=== PATIENT | female | born 1995 | race Caucasian/White ===

== ENCOUNTER 2022-01-13 17:56 | Emergency (ER) | payer SELFPAY ==
--- NOTE | 2022-01-13 19:44 | ED.GENADULT ---
HPI - General Adult General Chief complaint: Cough Stated complaint: Cough, Fever Related Data Previous Rx's ?Medication ?Instructions ?Recorded sertraline 25 mg tablet 50 mg (2 x 25 mg) PO QDAY #90 tabs 10/10/22 albuterol sulfate 90 mcg/actuation 2 puff inhalation QID PRN 11/14/22 aerosol inhaler shortness of breath or wheezing #6.7 grams Allergies Allergy/AdvReac Type Severity Reaction Status Date / Time Bee sting Allergy Severe Hives, Uncoded 11/14/22 13:41 swelling PFSH PFS Medical History Normal spontaneous vaginal delivery ?O80 - Encounter for full-term uncomplicated delivery (ICD-10) Scoliosis ?M41.9 - Scoliosis, unspecified (ICD-10) Anxiety ?F41.9 - Anxiety disorder, unspecified (ICD-10) Surgical History H/O LEEP ?Z98.890 - Other specified postprocedural states (ICD-10) History of tonsillectomy and adenoidectomy ?Z90.89 - Acquired absence of other organs (ICD-10) Family History Mother Heart disease Father H/O heart surgery Paternal Grandmother Diabetes Multiple sclerosis Aunt Breast cancer Maternal Grandmother Multiple sclerosis Son Asthma Social History Narrative: SOCIAL Education: some college 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 [employer] Partner: Dain villarreal and michell al; Son - Morales Lives with: SO and son Pets: cat and puppy Abuse: Denies past/present, past relationship physical and emotional Special Diet: Denies Ok with a blood transfusion: yes Culture or caodaism beliefs: denies RISK FACTORS Seat Belt Use: Routinely MRSA: Denies What is your current living situation?: I presently have a place to live Problems where you live: no known problems In the past 12 months, utilities in danger of being shut off: no In past 12 months, lack of transportation kept you from medical appts, meetings, work, or getting things needed for daily living: no In the past 12 mos, have been you worried that your food would run out before you had money to buy more?: never true In the past 12 mos, the food you bought just didn't last and you didn't have money to buy more?: never true Are you following a diet prescribed by a doctor: No Are you following a special diet: No Highest level of school completed/degree received: some college, no degree Physical activity type: walking Smoking Status: Current every day smoker What tobacco products do you use: cigarettes Nicotine containing products detail: working on cuttingback Second hand tobacco smoke exposure: No Non-prescribed substance use: former substance user and marijuana (any form) Non-prescribed substance use details: marijuana before +UPT Caffeine: Yes (1 cup of coffee a day) How often does anyone, including family, friends and others, physically hurt you: never How often does anyone, including family, friends and others, insult or talk down to you: never How often does anyone, including family, friends and others, threaten you with harm: never How often does anyone, including family, friends and others, scream or curse at you: never Little interest or pleasure in doing things: more than half the days Feeling down, depressed, or hopeless: not at all Discharge Plan Discharge Patient Disposition: Left Without Being Seen
--- NOTE | 2022-01-13 20:34 | ED.NURSE ---
patient left once signed refusal to see MD Form.
== END 2022-01-13 20:34 | disposition left against medical advice (07) ==
DX: Z53.29 Procedure and treatment not carried out because of patient's decision for other reasons (principal)
CPT/HCPCS: 95992; 99281

== ENCOUNTER 2022-01-30 07:28 | Outpatient (CLI) | payer SELFPAY ==
--- NOTE | 2022-01-30 07:15 | CRLHL7_ITS ---
For Patients: As a result of the Century Cures Act, medical imaging exams and procedure reports are released immediately into your electronic medical record. You may view this report before your referring provider. If you have questions, please contact your health care provider. INDICATION: First trimester scan, establish dates. COMPARISON: None. TECHNIQUE: Real-time saldana-scale imaging of the pelvis was performed. FINDINGS: Sonographic imaging demonstrates a single living intrauterine gestation. The embryo demonstrates a regular cardiac rate measuring 120 beats per minute. The embryo`s crown-rump length measurement of 0.7 cm corresponds to a gestational age of 6 weeks 4 days with a sonographic due date of 09/21/2022. There is a normal-appearing yolk sac. There are no gross abnormalities noted within the embryo at this early state of development. The gestational sac has a normal appearance. There is a 2.3 x 0.8 x 0.6 cm perigestational hemorrhage. The amount of fluid within the sac appears appropriate for gestational age. The cervix is closed. The myometrium appears normal. The ovaries are of normal size. Corpus luteal cyst right ovary. There are no suspicious fluid collections noted in the cul-de-sac. IMPRESSION: Single living intrauterine with sonographic gestational age 6 weeks 4 days and sonographic due date 09/21/2022. Right fundal subchorionic hemorrhage measuring 2.3 x 0.8 x 0.6 cm. Dictated by Jacoby Phelps MD @ 01/30/2022 8:43:25 AM (Electronically Signed)
== END 2022-01-30 07:29 | disposition home or self-care (01) ==
LOC: US 07:29
PROVIDERS: Visit Provider Advanced Practice Midwife
DX: Z34.91 Encounter for supervision of normal pregnancy, unspecified, first trimester (principal); O20.9 Hemorrhage in early pregnancy, unspecified; Z3A.01 Less than 8 weeks gestation of pregnancy
CPT/HCPCS: 76817

== ENCOUNTER 2022-01-30 09:12 | Outpatient (CLI) | payer SELFPAY ==
[2022-01-30 11:31] LABS: HIV 1/2/P24 Combo Screen* Negative (Negative)
[2022-01-30 13:32] LABS: Hepatitis B Surface Antigen* Negative (Negative)
[2022-01-30 13:49] LABS: Hepatitis C Virus Antibody* Negative (Negative)
[2022-01-30 14:53] LABS: Chlamydia DNA Amplified* NOT DETECTED (No Detected); GC DNA Amplified* NOT DETECTED (No Detected)
[2022-02-01 00:58] LABS: Rapid Plasma Reagin (RPR) Non Reactive (Non Reactive)
[2022-02-01 01:52] LABS: Rubella Antibody IgG 65.4 IU/mL
== END 2022-01-30 09:13 | disposition home or self-care (01) ==
PROVIDERS: Visit Provider Advanced Practice Midwife
DX: Z34.91 Encounter for supervision of normal pregnancy, unspecified, first trimester (principal); Z3A.13 13 weeks gestation of pregnancy
CPT/HCPCS: 86592; 86703; 86762; 86787; 86803; 86850; 86900; 86901; 87086; 87340; 87491; 87591

== ENCOUNTER 2022-04-18 13:48 | Outpatient (CLI) | payer SELFPAY | END 2022-04-18 13:49 | disposition home or self-care (01) | LOC: NFLDREF 13:50 | PROVIDERS: Visit Provider Advanced Practice Midwife | DX: Z34.81 Encounter for supervision of other normal pregnancy, first trimester (principal); Z3A.18 18 weeks gestation of pregnancy | CPT/HCPCS: 80306 ==

== ENCOUNTER 2022-05-08 08:10 | Outpatient (CLI) | payer SELFPAY ==
--- NOTE | 2022-05-08 08:15 | CRLHL7_ITS ---
For Patients: As a result of the Century Cures Act, medical imaging exams and procedure reports are released immediately into your electronic medical record. You may view this report before your referring provider. If you have questions, please contact your health care provider. INDICATION: Evaluate anatomy. COMPARISON: none TECHNIQUE: Real time saldana scale imaging of the fetus was performed as well as color Doppler analysis of the umbilical vessels. FINDINGS: Sonographic imaging demonstrates a single living intrauterine gestation. Fetus demonstrates a regular cardiac rate of 141 beats per minute. Fetus has a breech position. The placenta lies posteriorly without evidence of placenta previa. The edge of the placenta is located 7.0 cm from the internal cervical os. Amniotic fluid volume appears normal. Single deepest vertical pocket: 4.7 cm. The cervix is closed and measures 4.0 cm in length. The composite ultrasound gestational age is calculated at 20 weeks 6 days with an estimated sonographic due date of 09/19/2022. The estimated weight is 390 grams which lies at the 68th %. The following biometric measurements were obtained: Biparietal diameter: 4.7 cm/20 weeks 1 day 32nd% Head circumference: 18.1 cm/20 weeks 3 days 38th% Abdominal circumference: 16.9 cm/21 weeks 6 days 84th% Femur length: 3.2 cm/20 weeks 0 days 23rd% The HC/AC ratio measures: 1.07 range (1.06-1.25) On anatomic survey, there is a normal appearance of the cerebral ventricles, cavum septi pellucidi, cisterna magna and cerebellum. The nose, lips, and facial profile appear normal. The cervical, thoracic and lumbar spine are well visualized and appear normal. There is a normal four-chamber heart view and the left and right ventricular outflow tracts appear normal. The diaphragm and stomach appear normal. The kidneys and bladder also appear normal. There is a normal three-vessel cord and cord insertion site. The four extremities appear normal. IMPRESSION: Normal OB ultrasound exam with concordance of clinical and sonographic dating. No intrinsic abnormalities noted on anatomic survey. Dictated by Jacoby Phelps MD @ 05/08/2022 9:56:20 AM (Electronically Signed)
== END 2022-05-08 08:11 | disposition home or self-care (01) ==
PROVIDERS: Visit Provider Advanced Practice Midwife
DX: Z34.82 Encounter for supervision of other normal pregnancy, second trimester (principal); Z3A.20 20 weeks gestation of pregnancy
CPT/HCPCS: 76805

== ENCOUNTER 2022-08-28 09:23 | Outpatient (CLI) | payer OTHER, SELFPAY ==
[2022-08-29 14:08] LABS: Strep B DNA Probe NEGATIVE (Negative)
[2022-08-29 14:13] LABS: Strep B Pen/Amox Allergy No
== END 2022-08-28 09:24 | disposition home or self-care (01) ==
PROVIDERS: Visit Provider Advanced Practice Midwife
DX: Z34.93 Encounter for supervision of normal pregnancy, unspecified, third trimester (principal)
CPT/HCPCS: 87081; 87653

== ENCOUNTER 2022-09-21 21:39 | Inpatient (IN) | payer OTHER, SELFPAY ==
[2022-09-21 21:47] VITALS: BP 130/81; PULSE 106; RESP 18; TEMP 37.1
[2022-09-21 22:10] VITALS: BMI 27.7
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
[2022-09-21 23:07] VITALS: BP 121/71; PULSE 80; PULSE 85; TEMP 37.1; O2SAT 96
[2022-09-21] MEDS: miSOPROStoL 25 MCG/0.25 TABLET PO (23:12)
[2022-09-22] VITALS (84 sets, daily range): BP systolic 90–132; BP diastolic 51–80; PULSE 68–94; RESP 16–18; TEMP 36.3–37.2; O2SAT 96–100
[2022-09-22] MEDS: miSOPROStoL 25 MCG/0.25 TABLET PO (04:25)
[2022-09-22 06:48] LABS: Basophils Percent Auto 0.3 % (0.0-3.0); Eosinophils Percent Auto 0.6 % (0.0-7.0); Hemoglobin* 13.2 gm/dL (12.0-16.0); Immature Granulocytes Pct Auto 1.8 %; Lymphocytes Percent Auto 14.2 % (20-44); Mean Corpuscular HGB Conc 34 gm/dL (32-36); Mean Corpuscular Hemoglobin 31 pg (26-34); Mean Corpuscular Volume 91 fL (80-100); Monocytes Percent Auto 8.4 % (0.0-11.0); Neutrophils Percent Auto 74.7 % (42.0-72.0); Platelet Count* 322 K/uL (140-440); RDW Coefficient of Variation % 13.6 % (11.5-15.5); Red Blood Count 4.31 m/uL (4.00-5.20); White Blood Count* 11.37 K/uL (4.50-11.00)
[2022-09-22 06:49] LABS: Slide Review Reflex No
[2022-09-22] MEDS: OXYTOCIN 30 unit/500 ML in NS 30 UNIT/500 ML BAG IVPB (07:50)
[2022-09-22] MEDS: LACTATED RINGERS 1000 ML 1,000 ML 124 ML IV ×2 (07:50→15:21)
--- NOTE | 2022-09-22 08:23 | P.OBPN_ITS ---
Subjective Time Seen by Provider: 07:45 Date Seen: 09/22/22 Narrative: Gracie is a 27 yo at 40 1/7 weeks gestation that presented yesterday with PROM of clear fluid that occurred at 0830 am on 09/21. She has had two doses of cytotec and is starting to feel mild contractions. She was able to get some sleep overnight. She is supported by her partner, who is currently napping on the couch. She reports continued leaking of clear fluid. 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 at 40.1 weeks gestation? GBS negative? Uncomplicated ? PROM with clear fluid, >18 hours ?? PLAN:? 1. Reviewed options of management. She has had 2 doses of cytotec. Discussed another dose vs. Pitocin. Pt is agreeable to pitocin at this time. 2. Candidate for analgesia of choice when desired.. Planning epidural.? 3. Continuous monitoring per Pitocin protocol 4. Monitoring per Cytotec policy 5. Anticipate ??
[2022-09-22] MEDS: ROPIVACAINE 0.2% 100 ml 100 ML 12 MG EPIDURAL ×2 (14:28→22:03)
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
--- NOTE | 2022-09-22 17:20 | PM.OBPNL ---
Subjective Date Seen: 09/22/22 Narrative: Gracie is a at 40 1/7 weeks gestation that presented last evening with PROM that occurred morning at 830 am of clear fluid. She was given two doses of cytotec then IV pitocin was started this morning. She as coping well with movement but considering an epidural. At this time, her cervical exam was slightly more effaced and dilated than previous. She elected to continue to manage pain with activity and position changes. This afternoon she decided to get an epidural. She is currently comfortable with it in place. Objective Exam: Objective: Constitutional: Alert and oriented x3, moderate distress, coping well Vital signs stable, see nurse documentation Abdomen: gravid, contractions palpate moderate with contractions and soft between Cervix: 5 cm/90%/0 station/vertex, forebag AROM'd Vital Signs: Last Vital Signs Temp 98.7 F 09/22/22 17:12 Pulse 85 09/22/22 17:19 Resp 16 09/22/22 17:12 BP 110/58 L 09/22/22 17:19 Pulse Ox 100 09/22/22 17:00 Pelvic Exam Dilation (cm): 5 Effacement (%): 90 Station: 0 Contractions Monitor mode: External Contraction Frequency: 2-4 Contraction pattern: Regular Contraction intensity: Moderate Assessment Assessment: early labor Station: -2 Amniotic Membrane Status: AROM Status: Category l Heart Rate Baseline: 120 Nursing Home Variability: Moderate (6-25) Monitor Accelerations: Present Monitor Decelerations: None Maternal Status: Coping well with epidural in place. Plan Plan: Assessment at 40.1 weeks gestation? GBS negative? Uncomplicated ? PROM with clear fluid, >30 hours ?? PLAN:? 1. Reviewed options of management. Currently on pitocin. AROM'd forebag. Will continue to titrate pitocin as needed. 2. Continue epidural management. 3. Continuous monitoring per Pitocin protocol 4. Monitor for signs of infection with prolonged ROM. MD and Peds aware of prolonged ROM. 5. Anticipate ??
[2022-09-22] MEDS: PHENYLEPHRINE 100 MCG/ML SYRINGE IVP ×2 (18:53→19:08)
[2022-09-22] MEDS: LACTATED RINGERS 1000 ML 1,000 ML 125 ML IV (21:10)
[2022-09-22] MEDS: ONDANSETRON 2 MG/ML inj 4 MG IV (21:36)
[2022-09-22] MEDS: CALCIUM CARBONATE 500 MG CHEW PO (22:07)
[2022-09-23] VITALS (12 sets, daily range): BP systolic 99–125; BP diastolic 57–75; PULSE 43–81; RESP 15–18; TEMP 36.4–36.9; O2SAT 97
--- NOTE | 2022-09-23 00:25 | W.PM.OBVAGDE ---
OB Procedure Vag Delivery Mother Details Mother Details: Gracie is a 27 year-old, 2, now Para 2, admitted on 09/21/22 at 39 1/7 weeks gestation for PROM of clear fluid. : 2 Para: 2 Weeks Gestation: 39.2 Admission Date: 09/21/22 Additional Details Amniotic Membrane Status: SROM Amniotic Membrane Rupture Date: 09/21/22 Amniotic Membrane Rupture Time: 08:30 Amniotic Membrane Fluid Description: Clear Analgesia/Anesthesia Type: Epidural Waterbirth: No Pitcoin: Yes Intrapartal Events: Labor Augmentation and ROM >18 Hours Delivery augmentation: rupture of membranes (Forebag) and pitocin Labor Onset: 14:28 Complete: 21:17 Pushin:17 Heart: heart tones during second stage were category II with variable decelerations with most contractions during pushing with good return to baseline between and moderate variability. Provider at bedside for pushing. Bradycardia was noted with and delivery of head. Delivery Details Delivery Date: 09/22/22 Delivery Time: 23:39 Route of delivery: Infant Gender: Female Infant Viability: Alive; Heart Rate Present Position at Delivery: OA Delivery Details: Patient was admitted for PROM that occurred on 09/21 with clear fluid. She received two doses of cytotec before pitocin was started. A forebag was ruptured this afternoon and her labor progressed slowly. SROM noted at 09/21 at 0830 am with clear fluid. Patient got an epidural for pain management when her contractions started to get more intense. Prior to complete, baby had a prolonged deceleration with pitocin stopped and patient placed in hands in knees. After time for the fetus to recover, she was complete and started pushing on 09/22 at 2117. She pushed with a very dense epidural but with good maternal effort. After delivery of head, pt stopped pushing. We waited for her to have a surge in the contraction to deliver the rest of the body. of a viable female at 2339 in left tilt/semifowlers on the bed. Vertex delivered OA. Tight nuchal cord noted at delivery, baby somersaulted out of it after delivery. No shoulder. Body delivered easily and without incident. passed to mothers abdomen with a vigorous cry. Cord was clamped and cut at > 5 minutes. APGARS were 8 at one minute and 9 at five minutes respectively. Mouth was bulb suctioned. Intact placenta delivered, significant calcifications were noted with a 3 vessel cord delivered spontaneously at 2358. Fundus firm. Intact perineum. QBL 100 cc. Mother and baby stable; mother plans to breastfeed. weight pending. 1 Minute Interval Total Score: 8 5 Minute Interval Total Score: 9 Additional Details Shoulder Dystocia: No Placenta Delivery Time: 23:58 Placental Delivery Description: Spontaneous Procedure Done: Global Blood Loss: 100 Laceration: None Blood Loss Measurement Type: QBL Bakri Used: No Sponge/Need Count Correct: Yes Cord Vessel Description: 3 Vessels, Tight and Delivered through (Somersaulted thorugh after delivery) Event Summary Status: Mother and were stable after delivery. Disposition: floor
[2022-09-23] MEDS: DOCUSATE SODIUM 100 MG CAPSULE PO (08:51)
[2022-09-23] MEDS: IBUPROFEN 600 MG TABLET PO ×2 (08:51→16:41)
--- NOTE | 2022-09-23 14:30 | PM.OBPNVD1 ---
OB - PN:Subj Subjective Time Seen by Provider: 09:00 Date Seen: 09/23/22 Interval history: Gracie is a 27 y.o. who was admitted to L & D for SROM.? She had an uncomplicated NVD.? ? ? Narrative: The patient feels well.? The pain is well controlled with current medications.? She has no new complaints.? She is breast feeding and reports things are going well.? the patient has done well.? Vitals have been stable.? She has remained afebrile.? Has a good appetite, is tolerating a general diet.? She is voiding without difficulty.? She is passing gas and has not had a bowel movement.? She is ambulating and denies any dizziness.? Has Small amount of rubra lochia.? OB - PN: Obj Exam Physical Exam: Vital signs: Temp Pulse Resp BP Pulse Ox O2 Del Method 98.4 F 68 18 109/71 97 Room Air 09/23/22 12:56 09/23/22 12:56 09/23/22 12:56 09/23/22 12:56 09/23/22 12:56 09/23/22 12:56 Narrative: GENERAL APPEARANCE:? normal affect, alert, no distress? MOOD:? appropriate? HEENT: normocephalic, neck supple, full ROM? CHEST:? Symmetrical chest wall movement.? Normal respiratory effort.? Clear to auscultation ? HEART:? regular rate and rhythm? ABDOMEN:? soft, non-tender. Uterine fundus is firm, at Umbilicus, Midline and is appropriate for the stage of recovery.? Bowel sounds present.? PERINEUM:? mild edema of the perineum, there is a no laceration EXTREMITIES:? normal and trace edema? OB - PN: A/P Delivery Assessment and Plan (1) examination following vaginal delivery: Status: Acute (2) Normal spontaneous vaginal delivery: Status: Acute (3) Lactating mother: Status: Acute Plan day: 1 Plan: routine care Comments: G 2 P 2 status post uncomplicated NVD? ?? 1.? Continue route PP cares? 2.? .? May see if desired? 3.? Anticipate discharge home tomorrow?
[2022-09-24] MEDS: IBUPROFEN 600 MG TABLET PO (00:03)
[2022-09-24 00:06] VITALS: BP 112/74; PULSE 72; RESP 16; TEMP 36.5; O2SAT 97
[2022-09-24] MEDS: ACETAMINOPHEN 500 MG TABLET 1000 MG PO (08:00)
--- NOTE | 2022-09-24 08:38 | PM.OBDSVD1 ---
DS: Providers Provider Date Seen: 09/24/22 Date of admission: 09/21/22 21:39 Primary care physician: Not a Local Provider Admitting Clinician: Diane Hood CNM Attending Physician on discharge: Diane Hood CNM Date of Discharge: 09/24/22 DS: Diagnosis Discharge Diagnosis (1) Lactating mother: Status: Acute (2) examination following vaginal delivery: Status: Acute (3) Smoker: Status: Acute Problem details: down to 5-6 per day (4) Prolonged rupture of membranes, greater than 24 hours, delivered: Status: Acute Exam Narrative: Exam Narrative: GENERAL APPEARANCE:? normal affect, alert, no distress? MOOD:? appropriate? CHEST:? clear to auscultation and percussion? HEART:? regular rate and rhythm? ABDOMEN:? soft, non-tender the uterine fundus is 2 cm Below Umbilicus, Midline and is appropriate for the stage of recovery. ? PERINEUM:? mild edema of the perineum, the perineum is intact and healing well.? EXTREMITIES:? normal and no edema? Patient has no complaints? No active bleeding?? Doing well? She is requesting discharge home.? Const: Vital Signs, click to edit/add: Vital Signs - 24 hr 09/23/22 08:41 09/23/22 12:56 09/23/22 15:56 Temperature 98.4 F 98.4 F 98.2 F Pulse Rate [Pulse Oximeter] 72 68 72 Respiratory Rate 18 18 18 Blood Pressure [Le ft Arm] 106/66 109/71 108/71 Pulse Oximetry 97 97 97 Oxygen Delivery Me thod Room Air Room Air Room Air 09/23/22 21:20 09/24/22 00:06 Temperature 97.6 F 97.7 F Pulse Rate [Pulse Oximeter] 69 72 Respiratory Rate 16 16 Blood Pressure [Le ft Arm] 107/71 112/74 Pulse Oximetry 97 97 Oxygen Delivery Me thod Room Air Room Air OB - DS: Summary Hospital Course Hospital Course: Patient is a 27year old, G 2 now P 2? admitted on 09/22/22 at 40 Weeks, 1 Days gestation for SROM.? She had an uncomplicated vaginal delivery.? She delivered a viable female .? She is breast feeding and reports things are well.? the patient has done well.? Her pain is well controlled with current medications.? She has no new complaints.? Vitals have been stable. She has remained afebrile. She is voiding without difficulty. She is passing gas and has not had a bowel movement. She is ambulating and denies any dizziness. She is planning Nexplanon for control.?She declines ibuprofen and stool softeners as she states she has these medications at home already.?? Peripartum Data delivery method: Vaginal Laceration description: None Episiotomy description: None complications: none Infant Gender: Female Infant Discharge Plan: Home Status at Discharge Functional status at discharge: independent ambulation Overall status at discharge: patient is progressing back to baseline Time Spent with Patient Time attestation: Total time spent providing and/or coordinating discharge services: Discharge Plan Discharge Disposition: Home, Self-Care Date of Admission: 09/21/22 21:39 Attending Provider on Discharge: Diane Hood Primary Care Provider: Provider,Not a Local Condition: Stable Anticipated Discharge Date/Time: 09/24/22 10:00 Discharge Medications: Continued prenat.vits,enrique,[id number] Tablet 1 tab PO QDAY ascorbate calcium (vitamin C) 500 mg tablet 500 mg PO QDAY sertraline 25 mg tablet 50 mg PO QDAY Qty: 90 0RF Rx Instructions: Take 1 tablet for 1 week then you can increase to 2 tablets (50mg) daily if desired. Discharge Orders: Discharge Order (Routine); Ordered 09/24/22 Ordered By: Diane Hood Patient Education: OB Vaginal/Bottle Feeding Additional Instructions: Discharge instructions were reviewed with the patient including signs and symptoms of infection and home going medications.? Lifting Restrictions: 20 pounds for 6? weeks? ?? Do not drive while taking narcotic pain meds.? Off Work or School for 6 weeks.? ?? Symptoms to report to doctor:? -Bleeding that saturates more than one pad per hour? -Passing clots larger than the size of a golf ball? -Pain not relieved by prescribed medication? -Fever above 100.4 degrees Fahrenheit? -A foul vaginal odor? -Difficulty in emotions, mood and functions? -Thoughts of hurting yourself and/or ? -Painful, reddened area in your breast? -Any drainage, redness or tenderness in your IV/epidural site? -Severe headache that doesn't improve after taking medications? -Changes in vision, including temporary loss of vision, blurred vision, and/or light sensitivity? -Upper abdominal pain (usually under ribs on the right side)? -Decrease in urination or painful, frequent urinating? -Chest pain? -Shortness of breath? -Tenderness or pain with redness and/swelling in the calf(s) of your leg? ?? Follow Up in clinic in 2 and 6 weeks.? ?? consultation services are available to all mothers and babies for the first year after delivery.? To make an appointment, please call [phone].? Activity Level: Activity as Tolerated Discharge Diet: Regular Follow Up Appointments: [facility] [Provider Group] Provider,Not a Local [Primary Care Provider] - Forms: MyHealth Info Instructions
[2022-09-24] MEDS: DOCUSATE SODIUM 100 MG CAPSULE PO (08:46)
[2022-09-24 08:48] VITALS: BP 112/73; PULSE 72; RESP 16; TEMP 36.4; O2SAT 98
== END 2022-09-24 10:39 | disposition home or self-care (01) | DRG 807 ==
LOC: OB OUT 21:39 → OB 21:39
PROVIDERS: Advanced Practice Midwife; Admitting Provider Advanced Practice Midwife; Visit Provider Advanced Practice Midwife
DX: O42.12 Full-term premature rupture of membranes, onset of labor more than 24 hours following rupture (principal); Z37.0 Single live birth; O76 Abnormality in fetal heart rate and rhythm complicating labor and delivery; O99.344 Other mental disorders complicating childbirth; F41.9 Anxiety disorder, unspecified; O99.334 Smoking (tobacco) complicating childbirth; F17.210 Nicotine dependence, cigarettes, uncomplicated; M41.9 Scoliosis, unspecified; Z3A.40 40 weeks gestation of pregnancy
CPT/HCPCS: 01967; 36415; 59200; 84112; 85018; 85025; 86850; 86900; 86901; 86922; A9270; J2371; J2405; J2795; J7120; S0020